=== PATIENT | female | born 1935 | race Two or more races ===

== ENCOUNTER 2023-06-10 12:14 | Emergency (ER) | payer OTHER ==
[~2023-06-10] VITALS: Ht 152.4 cm; Wt 72.6 kg
== END 2023-06-10 16:33 | disposition home or self-care (01) ==
LOC: ER 12:14
DX: S05.12XA Contusion of eyeball and orbital tissues, left eye, initial encounter (principal); S50.12XA Contusion of left forearm, initial encounter; S80.02XA Contusion of left knee, initial encounter; W18.39XA Other fall on same level, initial encounter; Y93.89 Activity, other specified; Y92.238 Other place in hospital as the place of occurrence of the external cause; E11.9 Type 2 diabetes mellitus without complications; I10 Essential (primary) hypertension; M17.12 Unilateral primary osteoarthritis, left knee
CPT/HCPCS: 70450; 70480; 73090; 73564; 96372; 99284; J1885